=== PATIENT | female | born 1970 | race Caucasian/White ===

== ENCOUNTER → 2016-11-29 | Outpatient (CLI) | payer OTHER ==
--- NOTE | 2016-11-29 13:57 | MM ---
Reason for exam: additional evaluation requested from prior study. Last mammogram was performed 1 year and 11 months ago. History: Patient is postmenopausal and had first child at age 36. Family history of breast cancer in maternal aunt at age 40. Took hormonal contraceptives for 5 years. Physical Findings: Nurse did not find any significant physical abnormalities on exam. MG 3D Diag Mammo W/Cad ARASH Bilateral CC and MLO view(s) were taken. Prior study comparison: December 25, 2014, right breast MG work up mamm w CAD RT. December 20, 2014, bilateral MG screening mammo w CAD. There are scattered fibroglandular densities. No significant new findings when compared with previous films. These results were verbally communicated with the patient and result sheet given to the patient on 11/29/16. ASSESSMENT: Benign, BI-RAD 2 RECOMMENDATION: Routine screening mammogram of both breasts in 1 year.
== END | disposition home or self-care (01) ==
LOC: RADMAMWWP 13:02
PROVIDERS: ATTEND Family Medicine
DX: N63 Unspecified lump in breast (principal)
CPT/HCPCS: G0204; G0279

== ENCOUNTER → 2019-04-19 | Outpatient (CLI) | payer OTHER ==
--- NOTE | 2019-04-20 07:17 | MM ---
Reason for exam: clinical finding. Last mammogram was performed 2 years and 5 months ago. History: Patient is postmenopausal and had first child at age 36. Family history of breast cancer in maternal aunt at age 40. Took hormonal contraceptives for 5 years beginning at age 19. Physical Findings: Nurse did not find any significant physical abnormalities on exam. MG 3D Diag Mammo W/Cad ARASH Bilateral CC and MLO view(s) were taken. Prior study comparison: November 29, 2016, bilateral MG 3d diag mammo w/cad ARASH. December 25, 2014, right breast MG work up mamm w CAD RT. The breast tissue is heterogeneously dense. This may lower the sensitivity of mammography. The bilateral upper outer quadrant areas of distortion that improve on additional views. However precautionary ultrasound will be performed of the upper outer quadrant bilaterally. These results were verbally communicated with the patient and result sheet given to the patient on 04/19/19. ASSESSMENT: Incomplete: need additional imaging evaluation, BI-RAD 0 RECOMMENDATION: Ultrasound of both breasts. (upper outer quadrant)
--- NOTE | 2019-04-20 07:18 | USB ---
Reason for exam: additional evaluation requested from abnormal screening. History: Patient is postmenopausal and had first child at age 36. Family history of breast cancer in maternal aunt at age 40. Took hormonal contraceptives for 5 years beginning at age 19. US Breast Limited BILAT Right limited breast ultrasound including focal area of concern, retroareolar and axilla demonstrates no cystic or solid lesion seen. Left limited breast ultrasound including focal area of concern, retroareolar and axilla demonstrates no cystic or solid lesion seen. No suspicious finding. These results were verbally communicated with the patient and result sheet given to the patient on 04/19/19. ASSESSMENT: Probably benign, BI-RAD 3 RECOMMENDATION: Follow-up diagnostic mammogram of both breasts in 6 months.
== END | disposition home or self-care (01) ==
LOC: RADMAMWWP 14:52
PROVIDERS: ATTEND Family Medicine
DX: N64.4 Mastodynia (principal); R92.8 Other abnormal and inconclusive findings on diagnostic imaging of breast
CPT/HCPCS: 77062; 77066

== ENCOUNTER → 2020-02-27 | Outpatient (CLI) | payer OTHER ==
--- NOTE | 2020-03-03 09:17 | MR ---
EXAMINATION TYPE: MR brain wo/w con DATE OF EXAM: 02/27/2020 COMPARISON: CT brain 01/24/2019 [facility] HISTORY: Arnold-Chiari syndrome, painter CONTRAST: Performed utilizing 7 mL intravenous Gadavist gadolinium contrast. TECHNIQUE: Multiplanar, multiecho imaging on a 3.0 Jolynn magnet is performed through the brain. Stud y is performed within 24 hours of arrival to the hospital. The craniovertebral junction is normal. Cerebellar tonsils extend into the foramen without sent throu gh the foramen magnum. No Arnold-Chiari malformation is evident on the basis of this examination. No tonsillar pegging or kinking is evident. The pituitary is normal. Fourth ventricle is normal and mid line. Ambient cistern and quadrigeminal plate are normal. Third ventricle is midline. Lateral ventric les are normal. No temporal horn dilatation is evident. Diffusion-weighted imaging is performed. No abnormal hyperintensity is present to suggest an acute i ntracranial infarct or acute ischemic change. Subcortical white matter changes are present. The largest appears to be within the right centrum semi ovale parietal lobe. This is nonspecific. Microvascular ischemic change could be considered. Migraine headaches could be considered. Lyme disease, vasculitis, multiple sclerosis or within the differenti al. These do not appear to be out of portion to the patient's age. There is mucosal thickening within the right maxillary sinus. Remaining paranasal sinuses are clear. Mastoid air cells are clear. IMPRESSIONS: 1. No suspicious acute intracranial changes. White matter changes appear within normal limits for the patient age. 2. No Arnold-Chiari malformation based on the current findings.
== END | disposition home or self-care (01) ==
LOC: RADMRIMAIN 16:38
PROVIDERS: ATTEND Family Medicine
DX: Q07.00 Arnold-Chiari syndrome without spina bifida or hydrocephalus (principal)
CPT/HCPCS: 70553; A9585

== ENCOUNTER → 2020-03-11 | Outpatient (CLI) | payer OTHER ==
--- NOTE | 2020-03-11 13:52 | MM ---
Reason for exam: follow-up at short interval from prior study. Last mammogram was performed 11 months ago. History: Patient is postmenopausal and had first child at age 36. Family history of breast cancer in maternal aunt at age 40. Took hormonal contraceptives for 5 years beginning at age 19. Physical Findings: Nurse did not find any significant physical abnormalities on exam. MG 3D Diag Mammo W/Cad ARASH Bilateral CC and MLO view(s) were taken. Prior study comparison: April 19, 2019, bilateral MG 3d diag mammo w/cad ARASH. November 29, 2016, bilateral MG 3d diag mammo w/cad ARASH. The breast tissue is heterogeneously dense. This may lower the sensitivity of mammography. There is no discrete abnormality. These results were verbally communicated with the patient and result sheet given to the patient on 03/11/20. ASSESSMENT: Negative, BI-RAD 1 RECOMMENDATION: Routine screening mammogram of both breasts in 1 year.
== END | disposition home or self-care (01) ==
LOC: RADMAMWWP 13:02
PROVIDERS: ATTEND Family Medicine
DX: R92.8 Other abnormal and inconclusive findings on diagnostic imaging of breast (principal)
CPT/HCPCS: 77062; 77066